=== PATIENT | male | born 1990 | race Caucasian/White ===

== ENCOUNTER 2017-10-26 11:50 | Emergency (ER) | payer SELFPAY ==
--- NOTE | 2017-10-26 12:46 | RAD ---
THREE VIEWS LEFT FOOT: Date: 10-26-17 Comparison: None. History: Puncture wound to the plantar aspect of the foot at the level of the great toe, assess for a foreign body. FINDINGS: No fracture or dislocation. No radiopaque foreign body or subcutaneous gas. IMPRESSION: No acute findings. POS: [facility]
== END 2017-10-26 12:50 | disposition home or self-care (01) ==
LOC: MADERS 11:50
DX: S91.332A Puncture wound without foreign body, left foot, initial encounter (principal); L03.116 Cellulitis of left lower limb; F17.210 Nicotine dependence, cigarettes, uncomplicated; W26.8XXA Contact with other sharp object(s), not elsewhere classified, initial encounter; X58.XXXA Exposure to other specified factors, initial encounter; Y92.69 Other specified industrial and construction area as the place of occurrence of the external cause; Y99.0 Civilian activity done for income or pay